=== PATIENT | female | born 1985 | race Caucasian/White ===

== ENCOUNTER 2023-07-11 18:36 | Outpatient (REF) | payer OTHER, SELFPAY ==
[2023-07-11 15:12] LABS: Source Nasal/Nares
[2023-07-11 16:51] LABS: COVID-19 PCR Negative (Negative)
== END 2023-07-11 18:37 | disposition home or self-care (01) ==
LOC: LBN 18:36
PROVIDERS: Visit Provider Physician Assistant Medical
DX: Z11.52 Encounter for screening for COVID-19
CPT/HCPCS: 87635